=== PATIENT | male | born 1950 | race Caucasian/White ===

== ENCOUNTER 2017-10-12 13:51 | Outpatient (CLI) | payer MEDICARE ==
--- NOTE | 2017-10-12 15:53 | CT ---
CT CERVICAL SPINE WITHOUT CONTRAST: HISTORY: Neck pain, starting 6 weeks ago. COMPARISON: None. CORRELATION: None. TECHNIQUE: Noncontrast CT of the cervical spine is performed in the axial plane. Reformatted images are submitt ed for interpretation. FINDINGS: An anterior fusion plate with transvertebral body screw at C5 and C6. No perihardware lucency. Disk prosthesis at C5-C6. Moderate degenerative change at C6-C7 and C7-T1. Straightening of the normal cervical lordosis may be due to patient position or muscle spasm. No craniocervical dissociation. Lateral masses of C1 and C2 as well as the facets articulate appropr iately. Odontoid process is intact. No prevertebral soft tissue swelling. Upper mediastinum and lung apices are unremarkable. Limited evaluation of the contents of the central spinal canal and neural foramen. C2-C3: 3.4 mm of anterolisthesis of C3 upon C4. No significant disk-osteophyte complex. No signifi cant central canal stenosis. Mild left foraminal narrowing. C3-C4: Broad-based disk-osteophyte complex abuts the thecal sac. Mild central canal stenosis. Dege nerative change of bilateral uncovertebral joints along with left greater than right facet hypertroph y. These result in mild bilateral foraminal narrowing. C4-C5: Broad-based disk-osteophyte complex abuts the thecal sac. Mild central canal stenosis. Ther e is some deformity of the left hemicord. Degenerative changes in the left and right uncovertebral j oint result in minimal foraminal narrowing. There is left facet hypertrophy. C5-C6: There is a disk prosthesis. There is a central/left paracentral osteophyte. No significant central canal stenosis. Degenerative change of bilateral uncovertebral joints results in moderate ri ght and mild left foraminal narrowing. C6-C7: Central osteophyte complex deforms the thecal sac. Moderate central canal stenosis. Minimal right foraminal narrowing. Left foramen is patent. C7-T1: There appears to be a broad-based disk-osteophyte complex with at least mild central canal st enosis. Degenerative change in bilateral uncovertebral joints results in moderate right and mild lef t foraminal narrowing. IMPRESSION: 1. Cervical fusion changes as above. 2. Degenerative change of the cervical spine as above. POS: [facility]
--- NOTE | 2017-10-12 16:27 | RAD ---
FIVE VIEWS CERVICAL SPINE: Date: 10-12-17 History: Cervical radiculopathy. Neck pain that started six weeks ago. History of prior neck surgery. Comparison: 10-11-12 FINDINGS: Again noted are post-surgical changes related to anterior cervical fusion at the C5-6 level with ante rior plate and screws transfixing this level. No hardware complication is seen. There are degenerativ e changes at the C6-7 and C7-T1 levels with narrowing of the intervertebral disc spaces and osteophyt e formation. Findings were also present on prior exam. T1 vertebral body is not well seen on the prov ided lateral images. No fracture or subluxation is identified. Prevertebral soft tissues are within n ormal limits. Facet degenerative changes are noted. IMPRESSION: 1. Post-surgical changes related to anterior cervical fusion of the c5-6 level. 2. Degenerative changes within the cervical spine just below the level of post-surgical change. Mild degenerative changes are seen at the C3-4 level with posterior osteophyte formation present as well a s facet degenerative changes. POS: [facility]
--- NOTE | 2017-10-12 17:06 | MRI ---
MRI CERVICAL SPINE WITH AND WITHOUT CONTRAST: Date: 10/12/17 HISTORY: Cervical radiculopathy. Degenerative disc disease. Neck pain x6 weeks. COMPARISON: None. CORRELATION: CT cervical spine dated 10/12/17. TECHNIQUE: Cervical spine MRI is performed with and without intravenous Gadolinium administration. Multisequenti al, multiplanar imaging is performed. FINDINGS: Redemonstration of Grade I anterolisthesis of C2 upon C3. There is metallic susceptibility artifact s econdary to fusion change at C5-C6. No significant STIR hyperintensity to suggest edema due to fractu re. However, there is some mild edematous change involving the inferior end plate of C6, superior end plate of C7, and superior end plate of T1. Combination of Type I and Type II Modic changes are suspe cted. Visualized brain parenchyma, cervicomedullary junction, cervical cord, and the upper thoracic cord sosa ve a normal size and signal intensity. There is no abnormal enhancement. C2-C3: No significant disc osteophyte complex. No significant central canal stenosis. Right neural foramen i s patent. Mild left foraminal narrowing. C3-C4: Broad based disc osteophyte complex abuts the thecal sac. Mild central canal stenosis. Mild bilateral foraminal narrowing. Left greater than right facet hypertrophy. C4-C5: Broad based disc osteophyte complex abuts the thecal sac. Mild to moderate central canal stenosis. No T2 hyperintensity on the cord. No abnormal enhancement. Neural foramina are patent bilaterally. C5-C6: There is no significant osteophyte ridge. No high grade central canal stenosis or high grade foramina l narrowing. C6-C7: There is a central/left paracentral disc osteophyte complex. Moderate central canal stenosis. No T2 h yperintensity or abnormal enhancement. Mild right foraminal narrowing. Left foramen is patent. C7-T1: Broad based disc osteophyte complex abuts the thecal sac. Mild to moderate central canal stenosis. No abnormal signal intensity in the cord. Moderate bilateral foraminal narrowing. IMPRESSION: 1. Postsurgical changes of the cervical spine and degenerative changes of the cervical spine as abov e. No abnormal enhancement or abnormal signal intensity in the cervical cord. 2. Varying degrees of significant stenosis and foraminal narrowing as defined above. POS: [facility]
== END 2017-10-12 13:52 | disposition home or self-care (01) ==
LOC: TBSIIMAG 13:51
PROVIDERS: ATTEND Physician Assistant Surgical
DX: M47.22 Other spondylosis with radiculopathy, cervical region (principal); M48.02 Spinal stenosis, cervical region; M25.78 Osteophyte, vertebrae; M99.81 Other biomechanical lesions of cervical region; Z98.1 Arthrodesis status
CPT/HCPCS: 72050; 72125; 72156; 82565

== ENCOUNTER 2018-04-30 12:54 | Outpatient (CLI) | payer MEDICARE ==
--- NOTE | 2018-04-30 15:13 | MRI ---
MRI LUMBAR SPINE WITHOUT CONTRAST: DATE: 04/30/2018. COMPARISON: 11/18/2013. HISTORY: Low back pain. FINDINGS: Multiplanar, multisequence MR imaging of the lumbar spine provided without contrast. FINDINGS: There is levoscoliosis of the lumbar spine, incompletely assessed on this examination. The sagittal STIR imaging demonstrates no focal area of osseous marrow edema. Assuming 5 lumbar-type vertebral bodies, conus medullaris terminates at the T12-L1 level. T12-L1: Mild bilateral facet hypertrophy with no significant central canal or neural foraminal steno sis. L1-2: Disk desiccation, mild disk bulge, and small right paracentral disk protrusion with no central canal stenosis or neural foraminal stenosis. L2-3: Disk space narrowing and disk desiccation noted with anterior osteophyte formation. New disk bulge with superimposed central/right paracentral disk protrusion. New mild right lateral recess devendra nosis. Bilateral facet hypertrophy with mild bilateral neural foraminal stenosis, right greater than left. L3-4: Bilateral facet hypertrophy and hypertrophy of the ligamentum flavum, right greater than left. Disk space narrowing, disk desiccation, and degenerative end plate change noted, particularly later ally on the right. No central canal stenosis. Mild/moderate neural foraminal stenosis, worsened sin ce the prior examination. No significant left neural foraminal stenosis. L4-5: There is disk space narrowing, disk desiccation, and mild disk bulge. There is bilateral facet hypertrophy and hypertrophy of the ligamentum flavum, right greater than left. No significant centr al canal stenosis. Mild neural foraminal stenosis on the left. No significant right neural foramina l stenosis. L5-S1: There is disk space narrowing, disk desiccation, and mild disk bulge. There is bilateral fac et hypertrophy, left greater than right. Mild left lateral recess stenosis, stable. Severe left sofiya ral foraminal stenosis, slightly worsened. No right neural foraminal stenosis. Images retroperitoneal structures demonstrate a retroaortic left renal vein. IMPRESSION: Multilevel degenerative change and lumbar spine levoscoliosis. The most significant finding is sever e neural foraminal stenosis on the left at L5-S1. POS: [facility]
== END 2018-04-30 12:55 | disposition home or self-care (01) ==
LOC: BICMRI 12:54
PROVIDERS: ATTEND Surgery
DX: M54.5 Low back pain (principal); Q76.2 Congenital spondylolisthesis; M47.816 Spondylosis without myelopathy or radiculopathy, lumbar region; M48.07 Spinal stenosis, lumbosacral region; M41.9 Scoliosis, unspecified
CPT/HCPCS: 72148

== ENCOUNTER 2018-07-28 10:57 | Outpatient (CLI) | payer MEDICARE ==
--- NOTE | 2018-07-28 11:28 | RAD ---
TWO VIEWS RIGHT HIP: Comparison: None. History: Right hip arthritis and pain for six months. FINDINGS: Two views of the right hip shows no evidence of acute fracture or dislocation. There is mild joint sp damion narrowing along the acetabular roof. No soft tissue swelling is seen. IMPRESSION: Mild right hip osteoarthritis. POS: [facility]
== END 2018-07-28 10:58 | disposition home or self-care (01) ==
LOC: BICRAD 10:57
PROVIDERS: ATTEND Anesthesiology Pain Medicine
DX: M16.11 Unilateral primary osteoarthritis, right hip (principal)